=== PATIENT | male | born 1955 | race Caucasian/White ===

== ENCOUNTER 2022-12-06 06:42 | Outpatient (CLI) | payer MEDICARE, BC, SELFPAY ==
--- NOTE | 2022-12-06 09:22 | W.ANESCHARGE ---
Anesthesia Charges Start Date/Time Anesthesia Start Date: 12/06/22 Anesthesia Start Time: 08:50 Stop Date/Time Anesthesia Stop Date: 12/06/22 Anesthesia Stop Time: 09:17
== END 2022-12-06 06:43 | disposition home or self-care (01) ==
LOC: OP CLINIC 06:45
PROVIDERS: PCP Family Medicine; Visit Provider Internal Medicine
DX: Z86.010 Personal history of colon polyps (principal); K64.8 Other hemorrhoids
CPT/HCPCS: 00811; 45378

== ENCOUNTER 2023-02-17 09:22 | Outpatient (CLI) | payer MEDICARE, BC, SELFPAY | END 2023-02-17 09:23 | disposition home or self-care (01) | LOC: NFLDREF 22:14 | PROVIDERS: PCP Family Medicine; Visit Provider Family Medicine | DX: E78.5 Hyperlipidemia, unspecified (principal); I10 Essential (primary) hypertension | CPT/HCPCS: 80053; 80061 ==

== ENCOUNTER 2023-02-24 09:21 | Outpatient (CLI) | payer MEDICARE, BC, SELFPAY | END 2023-02-24 09:22 | disposition home or self-care (01) | LOC: NFLDREF 09:22 | PROVIDERS: PCP Family Medicine; Visit Provider Family Medicine | DX: Z00.00 Encounter for general adult medical examination without abnormal findings (principal); R97.20 Elevated prostate specific antigen [PSA]; Z12.5 Encounter for screening for malignant neoplasm of prostate | CPT/HCPCS: 84153 ==

== ENCOUNTER 2024-04-23 08:02 | Outpatient (CLI) | payer MEDICARE, BC, SELFPAY ==
--- OUTSIDE RECORDS SUMMARY | 2024-04-25 02:51 | XMS_ITS | Clinical Summary ---
Author Organization [facility] Address [address] [place] [address] Care Team Providers Care Layboy Tender Name Role Phone Unavailable Primary Care Provider Unavailabl e Source Comments Patient records contain information from all sites at [facility]. For routine questions regarding patient records, call [phone] during business hours, M-F 8:00 AM - 5:00 PM Central Time. Record requests for emergency care only can be directed to [phone] at any time.[facility] Allergies Active Allergy Reactions Criticality Noted Date Comments Simvastatin Other (see comments) 07/05/2014 Leg weakness Medications Medication Sig Dispensed Refills Start Date End Date Status aspirin, buffered, 325 mg tablet Take 1 tablet by mouth daily. 07/05/2014 Active atorvastatin (LIPITOR) 20 mg tablet Take 1 tablet by mouth daily. 12/09/2014 Active naproxen (NAPROSYN) 500 mg tablet TAKE ONE TABLET BY MOUTH TWICE A DAY NEEDED FOR PAIN* 09/04/2023 Active predniSONE (DELTASONE) 20 mg tablet Take 20 mg by mouth 2 (two) times a day as needed. 09/04/2023 Active aspirin 81 mg chewable tablet Chew 81 mg daily. Active Active Problems Problem Noted Date Diagnosed Date Atrial Fibrillation Unspecified 09/29/2023 Overview: -paroxysmal atrial fibrillation 01/2010 - started on flecainide 75mg BID, increased to 100mg BID 02/23/2010 -flecainide increased to 150mg BID (QRS 108ms prior to increased dose). -s/p complex radiofrequency ablation procedure 05/22/2010 Impaired Fasting Glucose 09/01/2014 Polyp Colon Adenomatous 11/26/2012 Overview: Colonoscopy 10/2012 polyp repeat in 5 years Hyperlipidemia Mixed 05/29/2010 Other Psoriasis 11/24/2007 Social History Tobacco Use Types Packs/Day Years Used Date Smoking Tobacco: Former Cigarettes Q uit: 06/27/2003 Passive Smoke Exposure: Never Smokeless Tobacco: Never Tobacco Cessation:Counseling Given: Not Answered [facility] Utilities Answer Date Recorded In the past 12 months has th e [employer], gas, oil, or water [employer] threatened to shut off services in your home? No 10/29/2023 Exercise Vital Sign Answer Date Recorde d On average, how many days pe r week do you engage in moderate to strenuous exercise (like a brisk walk)? 5 days 10/29/2023 On average, how many minutes do you engage in exercise at this level? 30 min 10/29/2023 Hunger Vital Sign Answer Date Recorded Within the past 12 months, y ou worried that your food would run out before you got the money to buy more. Never true 10/29/19 Within the past 12 months, t he food you bought just didn't last and you didn't have money to get more. Never true 10/29/2023 PRAPARE - Transportation Answer Date Re corded In the past 12 months, has l ack of transportation kept you from medical appointments or from getting medications? No 12/2023 In the past 12 months, has l ack of transportation kept you from meetings, work, or from getting things needed for daily living? No 10/29/2023 Nutrition Answer Date Recorded Nutrition: EVOO Fat Source Unknown 10/29 On average, how many serving s of fruits and vegetables do you eat per day (serving size is equal to 1 cup or approximately the size of a tennis ball)? 0-2 10/29/2023 Dental Answer Date Recorded Dental: Regular Dentist Yes 10/29/19 Employment Answer Date Recorded Employment status Retired 10/29/2023 Housing Stability Answer Date Recorded What is your living situation today? I have a [facility] place to live 10/29/2023 Sex and Gender Information Value Date Recorded Sex Assigned at Male 10/29/2023 5:04 PM LAPELER Gender Identity Male 10/29/2023 5:04 PM LAPELER Sexual Orientation Straight 10/29/2023 5: 04 PM LAPELER Plan of Treatment Upcoming Encounters Date Type Department Care Team (Late st Contact Info) Description 04/30/2024 2:00 PM CDT Office Visit Department of Urology in [place], [place] [address] [address] Sarah Jose APRN, C.N.P. [address] [address] Health Maintenance Due Date Last Done Comments Abdominal Aortic Aneurysm (A AA) Screen 1953 CT Colonography 1953 Cologuard 1953 Colonoscopy 1953 Colorectal Cancer Surveillance 1955 Fasting Glucose for Diabetes Screening 1955 Hepatitis C Screening 1953 Lipid (Cholesterol) Screening 1955 Zoster Vaccines (1 of 2) 2003 Depression Screening (Annual PHQ-2) 10/27/2023 Fall Risk Screen (Annual) 10/27/2023 COVID-19 Vaccine (2022-2 4 season) 2023 08/28/2023, 09/17/2022, 04/16/2022, Additional history exists DTaP,Tdap,and Td Vaccines (3 - Td or Tdap) 01/04/2029 01/04/2019, 06/10/2008 Pneumococcal vaccine (65+ years) Completed 02/13/20, 01/07/2020 Influenza Vaccine Completed 08/28/2023, , 08/23/2021, Additional history exists
--- OUTSIDE RECORDS SUMMARY | 2024-04-25 02:51 | XMS_ITS | Clinical Summary ---
Author Organization [facility] Address [place], [place] [address] Care Team Providers Care Comber Fixer Name Role Phone Jimi Chun MD Primary Care Provider [phone] Allergies Active Allergy Reactions Criticality Noted Date Comments Simvastatin Other - Describe In Comment Field 07/05/2014 Leg weakness Medications Medication Sig Dispensed Refills Start Date End Date Status aspirin, buffered (ASCRIPTIN) 325 mg buffered tablet Take 1 tablet by mouth once daily. 0 07/05/2014 Active atorvastatin (LIPITOR) 20 mg tablet TAKE ONE TABLET BY MOUTH ONCE DAILY. 90 tablet 1 12/09/2014 Active Active Problems Problem Noted Date Diagnosed Date Impaired fasting glucose 09/01/2014 Adenomatous colon polyp 11/26/2012 Overview: Colonoscopy 10/2012 polyp repeat in 5 years Mixed hyperlipidemia 05/29/2010 Routine general medical exam ination at a health care facility 04/13/2009 Overview: Lipids - 11/25/07, cholesterol - 235, LDL - 172, TG - 123 Dexa- none found Colon - none found Thyroid- none found Hep B-none found Tetanus- 06/10/08 Diabetic-no Other psoriasis 11/24/2007 Atrial fibrillation Overview: -paroxysmal atrial fibrillation 01/2010 - started on flecainide 75mg BID, increased to 100mg BID 02/23/2010 -flecainide increased to 150mg BID (QRS 108ms prior to increased dose). -s/p complex radiofrequency ablation procedure 05/22/2010 Resolved Problems Problem Noted Date Diagnosed Date Resolved Date Tobacco use disorder 11/24/2007 011 Immunizations Name Administration Dates Next Due Influenza, IIV3 (Age >=3 years) 11/15/2011,11/24 Td (Age >=7 Years) 10/27/1967 Tdap 06/10/2008 Family History Medical History Relation Name Comments Heart Disease Brother 1 at ag e 53, CABG at 51. Stroke Brother 2 Heart Disease Father at ag e 53 Relation Name Status Comments Brother 1 Brother 2 Father Mother Alive Social History Tobacco Use Types Packs/Day Years Used Date Smoking Tobacco: Former Cigarettes 1 35 0 06/27/1968 - 06/27/2003 Smokeless Tobacco: Never Alcohol Use Standard Drinks/Week Comments Yes 35 (1 standard drink = 0.6 oz pu re alcohol) 3 beers per day Social Connections Answer Date Recorded Frequency of Communication with Friends and Fami ly Not on file 10/27/2021 Financial Resource Strain Answer Date R ecorded Difficulty of Paying Living Expenses Not on file 10/27/2021 Difficulty of Paying Living Expenses Not on file 10/27/2021 Sex and Gender Information Value Date Recorded Sex Assigned at Not on file Gender Identity Not on file Sexual Orientation Not on file Obstetrics History Last Filed Vital Signs Vital Sign Reading Time Taken Comments Blood Pressure 112/74 07/05/2014 11:22 AM CDT Pulse 88 07/05/2014 11:22 AM CDT Temperature 36.7 ??C (98.1 ??F) 07/05/2014 11:22 AM C DT Respiratory Rate 18 05/23/2010 8:31 AM CDT Oxygen Saturation 97% 07/05/2014 11:22 AM CDT Inhaled Oxygen Concentration - - Weight 60.3 kg (133 lb) 07/05/2014 11:22 AM CDT Height 165.1 cm (5' 5) 08/10/2010 1:31 PM CDT Body Mass Index 22.13 08/10/2010 1:31 PM CDT Plan of Treatment Health Maintenance Due Date Last Done Comments Depression screening for age 12+ 1965 BMI (ht and wt on same day) for age 18+ 1971 Hepatitis C screening for ag e 18-79 1971 Zoster (shingles) series for age 50+ (1 of 2) 2003 Colonoscopy through age 75 11/25/2017 11/25/2012, Tetanus booster 06/10/2018 06/10/2008, 10/27/1967 Medicare Wellness for age 65+ 2018 Pneumococcal series for age 65+ (1 of 1 - PCV) 2018 Lipids for age 45-75 09/12/2019 09/12/2014, 05/06/2013, 11/14/2011, Additional history exists COVID-19 vaccine series (3 season) 2023 01/23/2021, 01/02/2021 Influenza for age 65+ 06/27/2024 11/15/2011, 008 Tdap Completed 06/10/2008 Procedures Procedure Name Priority Date/Time Associated Diagnosis Comments LIPID PANEL W REFLEX MEASURED LDL Routine 09/12/2014 8:17 AM EQUIP TECH Mixed hyperlipidemia from Last 3 Months or Most Recently Relevant to Health Maintenance Results * (ABNORMAL) LIPID PANEL W REFLEX MEASURED LDL (09/12/2014 8:17 AM EQUIP TECH) CHOLESTEROL,TOTAL 229(H) 100 - 199 mg/dL 09/12/2014 10:14 AM EQUIP TECH [facility] TRIGLYCERIDES 94 <150 mg/dL 09/12/2014 10:14 AM EQUIP TECH [facility] HDL CHOLESTEROL 71 >40 mg/dL 4 10:14 AM EQUIP TECH [facility] NON-HDL CHOLESTEROL 158(H) <145 mg/dl 09/12/2014 10:14 AM EQUIP TECH [facility] CHOL/HDL RATIO 3.23 <4.50 09/12/2014 10:14 AM EQUIP TECH [facility] LDL CHOLESTEROL 139(H) <=130 mg/dL 09/12/2014 10:14 AM EQUIP TECH [facility] PATIENT STATUS FASTING 09/12/2014 10:14 AM [address] [facility] Blood specimen (specimen) BLOOD SPECIMEN / Unknown Venipuncture / Unknown 09/12/2014 8:17 AM EQUIP TECH 09/12/2014 8:17 AM EQUIP TECH Cullen Berry MD CHEMISTRY [facility] [address] [place] [address], from Last 3 Months or Most Recently Relevant to Health Maintenance Advance Directives * Full Code (Latest Code Status on File) Date Activated Date Inactivated Comments 05/22/2010 7:05 AM 05/23/2010 12:16 PM Care Teams Comber Fixer Relationship Specialty Start Date End Date Jimi Chun MD [address] [place] [address] PCP - General Family Practice 07/17/21
--- OUTSIDE RECORDS SUMMARY | 2024-04-25 02:51 | XMS_ITS | Continuity of Care Document ---
Author Organization [facility] Address [address] [place] [address] Phone Care Team Providers Care Accounting Administrative Assistant Name Role Phone Bladimir Villegas Unavailable Unavailable Allergies, Adverse Reactions, Alerts Substance Reaction Status Criticality No Known Allergies Active No Inform ation Medications Medication Instructions Dosage Effective Dates (start - stop) Status Comments LIPITOR (unknown strength) Not Available - Active STANBACK ANALGESIC (unknown strength) Not Available - Active Procedures Procedure Date Office/Outpatient Visit,Est, Mod 2020 Office/Outpatient Visit,New, Mod 2020 Office/Outpatient Visit,Est, Mod 2014 Office/Outpatient Visit,New, Mod 2012 Advance Directives Directive Yes / No Effective Date File Name No Information Encounters Encounter Description Practice Location Reason(s) For Visit Diagnoses Date Provider Providers Copied on Encounter Office/Outpa tient Visit,Est, Mod [facility], [address], [place], [place], [id number], [place] tel:[phone] [facility] [place] Radiculopathy, lumbar regionOther intervertebral disc displacement, lumbar region Octavio Garrison. [facility], [address], [address], [place], [place], [id number], [place]. tel:[phone] Referring Provider: Fidelina Tovar, [facility] [address], [address], [place], [address] . tel:[phone] Office/Outpa tient Visit,New, Mod [facility], [address], [place], [place], [id number], [place] tel:[phone] [facility] - [place] Radiculopathy, lumbar regionOther intervertebral disc displacement, lumbar regionOther intervertebral disc degeneration, lumbar region Sep- 1 Panpradipa Bladimir. [facility], [address], [address], [place], [place], [id number], [place]. tel:[phone] Referring Provider: Fidelina Tovar, [facility] [address] [place] [address], [address], [place], [address] . tel:[phone] Office/Outpa tient Visit,Est, Mod [facility], [address], [place], [place], [id number], [place] tel:[phone] [facility] - [place] Other intervertebral disc degeneration, lumbar region 5 La Kitchen. [facility], [address], [address], [place], [place], [id number], [place]. tel:[phone] Referring Provider: Fidelina Tovar, [facility] [address] [place] [address], [address], [place], [address] . tel:[phone] Office/Outpa tient Visit,New, Mod Z [facility], [address] [place], [place] [address], [place], [address], [place] tel:[phone] [facility] - [place] 3 Andry Meehan. [facility], [address] [place] [address] [address], [place], [place], [id number], [place]. tel:[phone] Referring Provider: Cullen Ruffin, [facility] [address], [place], [address]. tel:[phone] Family History Family Member Type Diagnosis Age At Onset No Information Payers Payer name Insurance type Covered constitution party ID Jarett montana(s) [facility] [id number] Medicare [facility] [id number] Social History Type Description Quantity Date Captured Comments Alcohol Use Details Unknown Caffeine Use Details Unknown Tobacco Use Status Ex-cigarette smoker Smoking Status Former smoker Smoking Tobacco Use Details Cigarette: No Details Available Cigarette: No Details Available Sex Male Vital Signs Date / Time: Height Weight BMI Pulse Rate Blood Pressure Temperature Respiratory Rate Body Surface Area Head Circumference Head Circ. Percentile Wt./Neeraj. Percentile BMI percentile Pulse Ox Inhaled Ox 10:34 AM 64.25 in 64.319 kg (141.80 lbs) 24.1 5 kg/m eter (2) Chief Complaint And Reason For Visit No Information Reason For Referral Reason For Referral No Information History Of Present Illness Encounter Date Complaint History Of Prese nt Illness No Information Functional Status Date Functional Assessmen t No Information Instructions Date Instruction Additional Infor mation No Information Assessments Type Assessment Date assessment Radiculopathy, lumbar region Aug assessment Other intervertebral disc displa cement, lumbar region Patient Care Teams Name Effective Dates (start - stop) Status Members No Information
--- OUTSIDE RECORDS SUMMARY | 2024-04-25 02:51 | XMS_ITS ---
Author Organization [facility] Address [address] [place] [address] Care Team Providers Care Manager Custom Name Role Phone Unavailable Unavailable Unavailable Surgery Details Not on file Complications Check Surgery Details section. Procedure Estimated Blood Loss Check Surgery Details section. Procedure Findings Check Surgery Details section. Procedure Specimens Taken Check Surgery Details section.
--- OUTSIDE RECORDS SUMMARY | 2024-04-25 02:51 | XMS_ITS | Referral Summary ---
Author Organization [facility] Address [address] [place] [address] Care Team Providers Care Agricultural Engineering Technician Name Role Phone Unavailable Primary Care Provider Unavailabl e Source Comments Patient records contain information from all sites at [facility]. For routine questions regarding patient records, call [phone] during business hours, M-F 8:00 AM - 5:00 PM Central Time. Record requests for emergency care only can be directed to [phone] at any time.[facility] Allergies Active Allergy Reactions Criticality Noted Date [...] Tobacco: Never Tobacco Cessation:Counseling Given: Not Answered [facility] Utilities Answer Date Recorded In the past 12 months has th e [employer], gas, oil, or water [employer] threatened to shut off services in your [...] your living situation today? I have a [facility] place to live 10/29/2023 Sex and Gender Information Value Date Recorded Sex Assigned at Male 10/29/2023 5:04 PM AS400 OPERATOR Gender Identity Male 10/29/2023 5:04 PM AS400 OPERATOR Sexual Orientation Straight 10/29/2023 5: 04 PM AS400 OPERATOR Plan of Treatment Upcoming Encounters Date Type Department Care Team (Late st Contact Info) Description 04/30/2024 2:00 PM CDT Office Visit Department of Urology in [place], [place] [address] [place] [phone] Sarah Jose, TAYE, C.N.P. [address] [address]
== END 2024-04-23 08:03 | disposition home or self-care (01) ==
LOC: NFLDREF 04-25 02:49
PROVIDERS: PCP Family Medicine; Referring Provider Family Medicine; Visit Provider Family Medicine
DX: E78.5 Hyperlipidemia, unspecified (principal); R97.20 Elevated prostate specific antigen [PSA]; I10 Essential (primary) hypertension
CPT/HCPCS: 80053; 80061; 84153; 84154; G0103

== ENCOUNTER 2024-10-16 16:53 | Emergency (ER) | payer MEDICARE, BC, SELFPAY ==
[2024-10-16] VITALS (8 sets, daily range): BP systolic 147–163; BP diastolic 76–79; PULSE 83–97; RESP 16; TEMP 37.1; O2SAT 96–97; BMI 24.0
--- NOTE | 2024-10-16 17:14 | CRLHL7_ITS ---
For Patients: As a result of the Cures Act, medical imaging exams and procedure reports are released immediately into your electronic medical record. You may view this report before your referring provider. If you have questions, please contact your health care provider. INDICATION: History of a heart ablation in the past, left lower chest pain COMPARISON: None. TECHNIQUE: PA and lateral 2 view chest. FINDINGS: Lung volumes are good. Mild biapical scarring and distortion is relatively symmetric. No diffuse opacities or large consolidations. No pulmonary edema. No pleural effusion. No pneumothorax. No pneumomediastinum. Normal cardiomediastinal silhouette. Few atherosclerotic plaques of the aortic arch. Bones: Normal for age. IMPRESSION: No acute appearing findings. Biapical scarring and distortion. Consider comparison to any available prior examinations. Dictated by Luna Owusu MD @ 10/16/2024 6:07:55 PM (Electronically Signed)
--- NOTE | 2024-10-16 17:35 | ED.GENADULT ---
HPI - General Adult General Date Seen: 10/16/24 Chief complaint: Shortness of Breath/Dyspnea Stated complaint: chest pain, thinks it is your lungs Time Seen by Provider: 10/16/24 17:05 Source: patient Mode of arrival: ambulatory Limitations: no limitations History of Present Illness HPI narrative: Patient is a 69-year-old male presenting for left lower anterior chest pain. He describes it as a sharp sensation that is only there when he takes a deep breath. When he breathes normally the pain is he not there. It is a sharp 8 out 10 pain. Symptoms started four days ago right after he got over a upper respiratory infection. Does states symptoms seem to be worse this past Friday but have improved since then. Also has pain when he lays on his left side. Pain does not radiate anywhere. States he was forced to come in by his . Has had previous ablation for AFib. No history of heart disease other than the AFib. No history of lung disease. Quit smoking 21 years ago. Denies having symptoms like this before. Denies any shortness of breath. Does no history of blood clots. Denies fevers, chills, weakness, numbness, headache, abdominal pain, diarrhea, constipation Related Data Home Medications ?Medication ?Instructions ?Recorded ?Confirmed aspirin 81 mg tablet,delayed 81 mg PO DAILY 10/23/22 10/16/24 release triamcinolone acetonide 0.025 % 1 applic topical BID PRN 01/06/24 05/03/24 topical cream Previous Rx's ?Medication ?Instructions ?Recorded naproxen 500 mg tablet 500 mg PO BID PRN pain #30 tabs 09/04/23 atorvastatin 20 mg tablet 20 mg PO .Bedtime #90 tabs 04/26/24 Allergies Allergy/AdvReac Type Severity Reaction Status Date / Time No Known Allergies Allergy Unknown Unknown Verified 10/16/24 16:59 Review of Systems Status of ROS: Reports: 10 or more systems reviewed and unremarkable except as noted in History and below [facility] Medical History History of elevated prostate specific antigen (PSA) ?Z87.898 - Personal history of other specified conditions (ICD-10) History of colonic polyps ?Z86.010 - Personal history of colonic polyps (ICD-10) Surgical History History of radiofrequency ablation (RFA) procedure for cardiac arrhythmia (2004) ?Z98.890 - Other specified postprocedural states (ICD-10) History of eye surgery (1989) ?Z98.890 - Other specified postprocedural states (ICD-10) History of colonoscopy ?Z98.890 - Other specified postprocedural states (ICD-10) Family History Other Coronary artery disease Social History What is your current living situation?: I presently have a place to live Problems where you live: no known problems In the past 12 months, utilities in danger of being shut off: no In past 12 months, lack of transportation kept you from medical appts, meetings, work, or getting things needed for daily living: no In the past 12 mos, have been you worried that your food would run out before you had money to buy more?: never true In the past 12 mos, the food you bought just didn't last and you didn't have money to buy more?: never true Smoking Status: Former smoker How often do you have a drink containing alcohol: 4 or more times a week How many standard drinks containing alcohol do you have on a typical day: 1 or 2 AUDIT-C Alcohol total score: 4 Non-prescribed substance use: denies use How often does anyone, including family, friends and others, physically hurt you: never How often does anyone, including family, friends and others, insult or talk down to you: never How often does anyone, including family, friends and others, threaten you with harm: never How often does anyone, including family, friends and others, scream or curse at you: never Exam Narrative: Exam Narrative: Const: Well-nourished, Well-developed, in mild distress Eyes: PERRL, no conjunctival injection, and symmetrical lids HENT: Atraumatic external nose and ears. Moist mucous membranes. Neck: Symmetric, trachea midline, No thyromegaly. CVS: RRR, No murmurs or gallops. Peripheral pulses 2+ and equal in all extremities RESP: Unlabored respiratory effort. Clear to auscultation bilaterally. GI: Nontender/Nondistended, No rebound or guarding. MSK:Extremities w/o deformity, Normal Active ROM, pain not reproducible to palpation of chest Skin: Warm, Dry. No rashes or lesions. Neuro: Normal Muscle tone, No focal neurological deficits. Psych: Awake, Alert, & Oriented x3. Appropriate mood and affect. Const: Vital Signs, click to edit/add: Vital Signs - 24 hr 10/16/24 17:00 10/16/24 17:08 10/16/24 17:09 Temperature 98.7 F Pulse Rate 91 91 Pulse Rate [Pulse Oximeter] 95 Respiratory Rate 16 Blood Pressure 147/76 H Blood Pressure [Ri ght Upper Arm] 147/76 H Pulse Oximetry 97 97 97 Oxygen Delivery Me thod Room Air 10/16/24 17:15 10/16/24 17:30 10/16/24 17:45 Temperature Pulse Rate 91 97 85 Pulse Rate [Pulse Oximeter] Respiratory Rate Blood Pressure Blood Pressure [Ri ght Upper Arm] Pulse Oximetry 96 97 97 Oxygen Delivery Me thod 10/16/24 17:51 10/16/24 18:00 Temperature Pulse Rate 85 83 Pulse Rate [Pulse Oximeter] Respiratory Rate Blood Pressure 163/79 H Blood Pressure [Ri ght Upper Arm] Pulse Oximetry 97 97 Oxygen Delivery Me thod Course Vital Signs Vital signs: Initial Vital Signs Temperature 98.7 F 10/16/24 17:00 Temperature Source Temporal Artery Scan 10/16/24 17:00 Pulse Rate 95 10/16/24 17:00 Respiratory Rate 16 10/16/24 17:00 Blood Pressure 147/76 H 10/16/24 17:00 Blood Pressure Mean 99 10/16/24 17:00 Blood Pressure Position High-Fowlers 10/16/24 17:00 Pulse Oximetry 97 10/16/24 17:00 Oxygen Delivery Method Room Air 10/16/24 17:00 Vital Signs Temperature 98.7 F 10/16/24 17:00 Pulse Rate 95 10/16/24 17:00 Respiratory Rate 16 10/16/24 17:00 Blood Pressure 147/76 H 10/16/24 17:00 Pulse Oximetry 97 10/16/24 17:00 Oxygen Delivery Method Room Air 10/16/24 17:00 Temperature 98.7 F 10/16/24 17:00 Pulse Rate 83 10/16/24 18:00 Respiratory Rate 16 10/16/24 17:00 Blood Pressure 163/79 H 10/16/24 17:51 Pulse Oximetry 97 10/16/24 18:00 Oxygen Delivery Method Room Air 10/16/24 17:00 Medications Administered Medications: Discontinued Medications Generic Name Dose Route Start Last Admin Trade Name Donq PRN Reason Stop Dose Admin Ketorolac Tromethamine 15 mg 10/16/24 17:14 10/16/24 17:52 Ketorolac 15 Mg/Ml Inj IVP 10/16/24 17:15 Not Given ONCE ONE Medical Decision Making MDM Narrative Medical decision making narrative: Patient is a 69-year-old male presenting for chest pain. The differential diagnosis of chest pain is broad and includes common etiologies such as musculoskeletal strain, GERD, pneumonia, etc. More serious etiologies considered include PE, coronary artery disease, pneumothorax, aortic dissection, aortic aneurysm. Will do chest x-ray to look for signs pneumonia or pneumothorax. EKG and troponin shows sinus the coronary artery disease or myocarditis. The done will be ordered to the signs of help PE. He looks to be an otherwise well-appearing male dissection and aortic aneurysm seems unlikely. Based on his description no recent viral infection symptoms seem likely for pleurisy. Lab work all returned showing no concerning abnormalities. EKG shows no concerning findings. Troponin within normal limits. Considering symptoms have been going on for multiple days repeat troponin is not necessary. He continues to only have symptoms when he takes a deep breath. Did offer Toradol but he declined. Chest x-ray reviewed by myself and the radiologist shows no concerning abnormalities. Viral swab is negative. At this time seems most likely symptoms are from pleurisy. Patient will be discharged he was agreeable to this plan Lab Data Labs: Lab Results 10/16/24 10/16/24 Range/Units 17:20 17:40 WBC 7.82 (4.50-11.00) K/uL RBC 4.90 (4.30-5.90) m/uL Hgb 14.8 (13.5-17.5) gm/dL Hct 44.3 (37.0-53.0) % MCV 90 (80-100) fL MCH 30 (26-34) pg MCHC 33 (32-36) gm/dL RDW Coeff of Kailey 12.9 (11.5-15.5) % Plt Count 283 (140-440) K/uL Neut % (Auto) 57.0 (42.0-72.0) % Lymph % (Auto) 32.7 (20-44) % [place] % (Auto) 8.3 (0.0-11.0) % Eos % (Auto) 1.5 (0.0-7.0) % Baso % (Auto) 0.4 (0.0-3.0) % Neut # (Auto) 4.45 (1.7-7.0) K/uL Lymph # (Auto) 2.56 (0.90-2.90) K/uL [place] # (Auto) 0.60 (0.00-0.90) K/UL Eos # (Auto) 0.12 (0.00-0.50) K/uL Baso # (Auto) 0.03 (0.00-0.30) K/uL Abs Immat Gran (auto) 0.01 (0.00-0.30) K/uL Imm/Tot Granulo (auto) 0.1 % D-Dimer Quant (PE/DVT) 0.37 (0.00-0.50) ug/ml Sodium 138 (135-149) mmol/L Potassium 4.0 (3.6-5.1) mmol/L Chloride 106 (96-114) mmol/L Carbon Dioxide 25 (20-32) mmol/L Anion Gap 7 (7-15) mEq/L BUN 20 (7-30) mg/dL Creatinine 0.8 (0.5-1.5) mg/dL Estimated Creat Clear 58.94 Estimated GFR 95 ml/min Glucose 125 H (60-115) mg/dL Calcium 8.7 (8.4-10.6) mg/dL Troponin I < 0.01 L (0.01-0.04) ng/mL SARS-CoV-2 (PCR) Negative SARS-CoV-2 (Negative) Influenza Type A (PCR) Negative PCR FLU A (Negative) Influenza Type B (PCR) Negative PCR FLU B (Negative) RSV (PCR) Negative PCR RSV (Negative) Imaging Data Chest x-ray: Attestation: I have reviewed the pertinent imaging results. Radiologist's impression: No acute appearing findings. Biapical scarring and distortion. Consider comparison to any available prior examinations. Dictated by Luna Owusu MD @ 10/16/2024 6:07:55 PM ECG Data Attestation: I personally reviewed and interpreted this ECG as follows: Prior ECG tracings: not available for review Interpretation: Normal sinus rhythm with a rate of 96 beats per minute, normal intervals, normal axis, no ST or T-wave abnormalities Discharge Plan Discharge Clinical Impression: Pleurisy Patient Disposition: Home, Self-Care Condition: Stable Instructions: Pleurisy (DC) Additional Instructions: Symptoms seem likely to be from pleurisy. Take ibuprofen or other NSAIDs for your pain. Return to emergency department for new or worsening symptoms. Prescriptions: No Action atorvastatin 20 mg tablet 20 mg PO .Bedtime Qty: 90 3RF aspirin 81 mg tablet,delayed release (DR/EC) 81 mg PO DAILY triamcinolone acetonide 0.025 % cream 1 applic topical BID PRN Rx Instructions: Apply twice daily as needed, put away cream when skin is cleared naproxen 500 mg tablet 500 mg PO BID PRN (Reason: pain) Qty: 30 0RF Follow Up/Referrals: Jimi Chun MD [Primary Care Provider] - Stand Alone Forms: [facility] Info Instructions
[2024-10-16 17:54] LABS: Basophils Absolute Auto 0.03 K/uL (0.00-0.30); Basophils Percent Auto 0.4 % (0.0-3.0); Eosinophils Absolute Auto 0.12 K/uL (0.00-0.50); Eosinophils Percent Auto 1.5 % (0.0-7.0); Hematocrit 44.3 % (37.0-53.0); Hemoglobin* 14.8 gm/dL (13.5-17.5); Immature Granulocytes Abs Auto 0.01 K/uL (0.00-0.30); Immature Granulocytes Pct Auto 0.1 %; Lymphocytes Absolute Auto 2.56 K/uL (0.90-2.90); Lymphocytes Percent Auto 32.7 % (20-44); Mean Corpuscular HGB Conc 33 gm/dL (32-36); Mean Corpuscular Hemoglobin 30 pg (26-34); Mean Corpuscular Volume 90 fL (80-100); Monocytes Percent Auto 8.3 % (0.0-11.0); Neutrophils Absolute Auto 4.45 K/uL (1.7-7.0); Platelet Count* 283 K/uL (140-440); RDW Coefficient of Variation % 12.9 % (11.5-15.5); White Blood Count* 7.82 K/uL (4.50-11.00)
[2024-10-16 18:03] LABS: Slide Review Reflex No
[2024-10-16 18:06] LABS: Chloride* 106 mmol/L (96-114); Sodium* 138 mmol/L (135-149)
[2024-10-16 18:07] LABS: PCR FLU A Negative PCR FLU A (Negative); PCR FLU B Negative PCR FLU B (Negative); PCR RSV Negative PCR RSV (Negative); SARS PCR* Negative SARS-CoV-2 (Negative)
[2024-10-16 18:09] LABS: Anion Gap 7 mEq/L (7-15); Blood Urea Nitrogen* 20 mg/dL (7-30); Carbon Dioxide* 25 mmol/L (20-32); Creatinine* 0.8 mg/dL (0.5-1.5); Est. Creatinine Clearance* 58.94; Estimated Glomerular Filt Rate 95 ml/min
[2024-10-16 18:10] LABS: Calcium* 8.7 mg/dL (8.4-10.6); Glucose* 125 mg/dL (60-115)
[2024-10-16 18:22] LABS: Troponin I* < 0.01 ng/mL (0.01-0.04)
[2024-10-16 18:33] LABS: D Dimer Quantitative* 0.37 ug/ml (0.00-0.50)
== END 2024-10-16 19:03 | disposition home or self-care (01) ==
PROVIDERS: Emergency Provider Student in an Organized Health Care Education/Training Program; PCP Family Medicine
DX: R09.1 Pleurisy (principal)
CPT/HCPCS: 36415; 71046; 80048; 84484; 85025; 85379; 87631; 93005; 99284

== ENCOUNTER 2025-06-17 08:00 | Outpatient (CLI) | payer MEDICARE, BC, SELFPAY | END 2025-06-17 08:01 | disposition home or self-care (01) | LOC: NFLDREF 06-21 14:36 | PROVIDERS: PCP Family Medicine; Referring Provider Family Medicine; Visit Provider Family Medicine | DX: E78.5 Hyperlipidemia, unspecified (principal); N40.0 Benign prostatic hyperplasia without lower urinary tract symptoms; R97.20 Elevated prostate specific antigen [PSA]; Z12.5 Encounter for screening for malignant neoplasm of prostate | CPT/HCPCS: 80053; 80061; 84153; 84154 ==